=== PATIENT | female | born 1960 | race Caucasian/White ===

== ENCOUNTER 2022-02-26 09:10 | Outpatient (CLI) | payer OTHER ==
[2022-02-26 10:00] LABS: BASOPHILS # (AUTO) 0.1 10^3/uL (0.0-0.1); BASOPHILS % (AUTO) 0.8 %; EOSINOPHILS # (AUTO) 0.2 10^3/uL (0.0-0.7); EOSINOPHILS % (AUTO) 3.3 %; HCT - HEMATOCRIT 42.7 % (37.0-47.0); HGB - HEMOGLOBIN 13.8 g/dL (12.0-16.0); LYMPHOCYTES % (AUTO) 30.5 %; MEAN CORPUSCULAR HEMOGLOBIN 29.2 pg (27.0-31.0); MEAN CORPUSCULAR HGB CONC 32.3 g/dL (32.0-36.0); MEAN CORPUSCULAR VOLUME 90.3 fL (81.0-99.0); MEAN PLATELET VOLUME 9.7 fL (7.9-10.8); MONOCYTES # (AUTO) 0.4 10^3/uL (0.0-1.0); MONOCYTES % (AUTO) 5.5 %; NEUTROPHILS # (AUTO) 3.8 10^3/uL (1.5-6.6); NEUTROPHILS % (AUTO) 59.6 %; PLT - PLATELET COUNT 243 10^3/uL (130-450); RED BLOOD COUNT 4.73 10^6/uL (4.20-5.40); RED CELL DISTRIBUTION WIDTH 13.5 % (12.0-15.0); WHITE BLOOD COUNT 6.4 x10^3/uL (4.8-10.8)
[2022-02-26 10:21] LABS: THYROID STIMULATING HORMONE 1.38 uIU/mL (0.34-5.60)
[2022-02-26 12:11] LABS: ALBUMIN/GLOBULIN RATIO 1.1 (1.0-2.2); ALKALINE PHOSPHATASE 58 IU/L (42-121); ALT ALANINE AMINOTRANSFERASE 17 IU/L (10-60); AST ASPARTATE AMINOTRANSFERASE 16 IU/L (10-42); BILIRUBIN,TOTAL 1.2 mg/dL (0.2-1.0); BUN - BLOOD UREA NITROGEN 18 mg/dL (6-20); CALCIUM 9.4 mg/dL (8.5-10.3); CARBON DIOXIDE - CO2 28 mmol/L (21-32); CHLORIDE 102 mmol/L (101-111); CHOL/HDL RATIO 2.6 (<4.4); CHOLESTEROL 199 mg/dL; CREATININE 0.9 mg/dL (0.4-1.0); GFR - MDRD 64 (>89); GLUCOSE 132 mg/dL (70-100); HDL CHOLESTEROL 78 mg/dL; LDL CHOLESTEROL,CALCULATED 106 mg/dL; LDL/HDL RATIO 1.4 (<4.4); POTASSIUM 4.3 mmol/L (3.5-5.0); SODIUM 140 mmol/L (135-145); TOTAL PROTEIN 7.6 g/dL (6.7-8.2); TRIGLYCERIDES 76 mg/dL; URIC ACID 5.2 mg/dL (2.6-7.2); VLDL CHOLESTEROL 15 mg/dL
[2022-02-26 12:46] LABS: ESTIMATED AVERAGE GLUCOSE 128 mg/dL (70-100); HEMOGLOBIN A1c% 6.1 % (4.27-6.07)
[2022-02-27 13:46] LABS: HEPATITIS C ANTIBODY NON-REACTIVE (NON-REACTIVE)
== END 2022-02-26 09:11 | disposition home or self-care (01) ==
LOC: LAB 09:10
PROVIDERS: ATTEND Internal Medicine
DX: I10 Essential (primary) hypertension (principal); E66.9 Obesity, unspecified; M19.90 Unspecified osteoarthritis, unspecified site; R73.03 Prediabetes; E04.1 Nontoxic single thyroid nodule; Z13.6 Encounter for screening for cardiovascular disorders; Z79.899 Other long term (current) drug therapy
CPT/HCPCS: 36415; 80053; 80061; 82607; 83036; 83721; 84443; 84550; 85025; 86803

== ENCOUNTER 2022-02-28 14:26 | Outpatient (CLI) | payer OTHER ==
--- NOTE | 2022-03-07 14:08 | Mammography Report ---
BILATERAL DIGITAL SCREENING MAMMOGRAM 3D/2D: 02/28/2022 CLINICAL: Routine screening. No prior exams were available for comparison at this time. There are scattered fibroglandular elemen ts in both breasts. 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 No other significant masses, calcifications, or other findings are seen in either breast. IMPRESSION: INCOMPLETE: NEEDS ADDITIONAL IMAGING EVALUATION The 0.5 cm oval focal asymmetry in the left breast is indeterminate. Additional views with possible ultrasound are recommended. Recommend comparison to prior mammogram if it become available. This exam was interpreted at Station ID: [id number]. NOTE: For mammograms, a report in lay terms will be sent to the patient. Approximately 15% of breast malignancies will not be visualized mammographically. In the management of a palpable breast mass, a negative mammogram must not discourage biopsy of a clinically suspicious lesion. Electronically Signed By: Prasanna Jones M.D. slc/:03/06/2022 14:21:29 ACR BI-RADS Category 0: Incomplete 3340F PARENCHYMAL PATTERN: (A) - The breast(s) demonstrate(s) scattered fibroglandular densities. BI-RADS CATEGORY: (0) - 0 Mammo and [place] [id number] Immediate follow-up LATERALITY: (B)
== END 2022-02-28 14:27 | disposition home or self-care (01) ==
LOC: DI.N 14:26
DX: Z12.31 Encounter for screening mammogram for malignant neoplasm of breast (principal); R92.8 Other abnormal and inconclusive findings on diagnostic imaging of breast

== ENCOUNTER 2022-06-15 12:48 | Outpatient (CLI) | payer OTHER | END 2022-06-15 12:49 | disposition home or self-care (01) | LOC: LAB 12:48 | PROVIDERS: ATTEND Internal Medicine | DX: E03.9 Hypothyroidism, unspecified (principal) | CPT/HCPCS: 36415; 84443 ==

== ENCOUNTER 2023-06-06 08:53 | Outpatient (CLI) | payer OTHER ==
[2023-06-06 09:18] LABS: BASOPHILS # (AUTO) 0.1 10^3/uL (0.0-0.1); BASOPHILS % (AUTO) 0.9 %; EOSINOPHILS # (AUTO) 0.2 10^3/uL (0.0-0.7); EOSINOPHILS % (AUTO) 3.2 %; HCT - HEMATOCRIT 41.8 % (37.0-47.0); HGB - HEMOGLOBIN 13.6 g/dL (12.0-16.0); LYMPHOCYTES # (AUTO) 1.5 10^3/uL (1.5-3.5); LYMPHOCYTES % (AUTO) 25.4 %; MEAN CORPUSCULAR HEMOGLOBIN 30.4 pg (27.0-31.0); MEAN CORPUSCULAR HGB CONC 32.5 g/dL (32.0-36.0); MEAN CORPUSCULAR VOLUME 93.5 fL (81.0-99.0); MEAN PLATELET VOLUME 9.5 fL (7.9-10.8); MONOCYTES # (AUTO) 0.3 10^3/uL (0.0-1.0); MONOCYTES % (AUTO) 5.4 %; NEUTROPHILS # (AUTO) 3.7 10^3/uL (1.5-6.6); NEUTROPHILS % (AUTO) 64.9 %; PLT - PLATELET COUNT 201 10^3/uL (130-450); RED BLOOD COUNT 4.47 10^6/uL (4.20-5.40); WHITE BLOOD COUNT 5.7 x10^3/uL (4.8-10.8)
[2023-06-06 09:38] LABS: ALBUMIN 3.9 g/dL (3.2-5.5); ALBUMIN/GLOBULIN RATIO 1.2 (1.0-2.2); ALKALINE PHOSPHATASE 67 IU/L (42-121); ALT ALANINE AMINOTRANSFERASE 16 IU/L (10-60); AST ASPARTATE AMINOTRANSFERASE 14 IU/L (10-42); BILIRUBIN,TOTAL 1.2 mg/dL (0.2-1.0); BUN - BLOOD UREA NITROGEN 18 mg/dL (6-20); CARBON DIOXIDE - CO2 28 mmol/L (21-32); CHLORIDE 100 mmol/L (101-111); CHOL/HDL RATIO 2.8 (<4.4); CHOLESTEROL 214 mg/dL; CREATININE 0.9 mg/dL (0.4-1.0); GFR - MDRD 64 (>89); GLUCOSE 130 mg/dL (70-100); HDL CHOLESTEROL 77 mg/dL; LDL CHOLESTEROL,CALCULATED 121 mg/dL; LDL/HDL RATIO 1.6 (<4.4); POTASSIUM 4.4 mmol/L (3.5-5.0); SODIUM 136 mmol/L (135-145); TOTAL PROTEIN 7.2 g/dL (6.7-8.2); TRIGLYCERIDES 79 mg/dL; VLDL CHOLESTEROL 16 mg/dL
== END 2023-06-06 08:54 | disposition home or self-care (01) ==
LOC: LAB 08:53
PROVIDERS: ATTEND Internal Medicine
DX: Z00.00 Encounter for general adult medical examination without abnormal findings (principal); I10 Essential (primary) hypertension; R73.03 Prediabetes; Z79.899 Other long term (current) drug therapy; F32.A Depression, unspecified
CPT/HCPCS: 36415; 80053; 80061; 83721; 84443; 85025

== ENCOUNTER 2023-06-27 08:00 | Outpatient (CLI) | payer OTHER ==
--- NOTE | 2023-06-27 17:59 | XRAY Report ---
PROCEDURE: Hip 2 View LT INDICATIONS: LEFT HIP PAIN TECHNIQUE: 3 views of the hip were acquired. COMPARISON: None. FINDINGS: Bones: Asymmetric severe left hip joint osteoarthritic changes are seen with near complete loss of s uperior joint space narrowing, extensive subchondral sclerosis and prominent in lateral marginal oste ophyte formation. No acute fracture or dislocation. No definite radiographic evidence of avascular ne crosis of femoral head. Soft tissues: No suspicious soft tissue calcifications or masses. IMPRESSION: Asymmetric severe left hip joint osteoarthritis. No acute hip fracture or dislocation. No radiographi c evidence of avascular necrosis. Reviewed by: Abisai Isaac MD on 06/27/2023 5:57 PM PDT Approved by: Abisai Isaac MD on 06/27/2023 5:57 PM PDT Station ID: [id number]
== END 2023-06-27 23:59 | disposition home or self-care (01) ==
LOC: DI.WOS 08:00
PROVIDERS: ATTEND Physician Assistant Surgical
DX: M16.12 Unilateral primary osteoarthritis, left hip (principal)

== ENCOUNTER 2023-07-17 09:28 | Outpatient (CLI) | payer OTHER ==
--- NOTE | 2023-07-17 16:58 | MRI Report ---
PROCEDURE: HIP WO - LT INDICATIONS: LEFT HIP PAIN TECHNIQUE: Noncontrast coronal T1 spin echo and STIR through the bony pelvis. Coronal and axial T2 fast spin ec ho with fat saturation, sagittal T1 spin echo, and oblique axial T2 fast spin echo with fat saturatio n through the hip. COMPARISON: Plain films dated 06/27/2023. FINDINGS: Image quality: Excellent. Bones and joints: Severe subchondral cyst formation within the left acetabulum and left femoral head. Bone marrow of the pelvic ring and proximal femurs demonstrates otherwise normal signal throughout. No intraosseous lesions or fractures. No avascular necrosis of the femoral heads. Left hip joint ef fusion with multiple intra-articular loose bodies, largest of which measures 25 mm diameter. The vis ualized lower lumbar spine appears normally aligned. Tendons: The gluteus medius and minimus tendons appear intact, without associated muscle atrophy. T here is mild T2 signal elevation at the femoral insertion site of the left gluteus medius and minimus tendons. The iliopsoas tendon appears intact, without adjacent bursal fluid collections. The origin of the hamstring tendon is intact at the ischial tuberosity. Labrum and cartilage: Severe diffuse degenerative left hip labral tearing. Severe articular cartilage loss at the left hip. The alpha angle of the femur is within normal limits at less than 55 degrees. Soft tissues: Visualized muscles demonstrate normal bulk and internal signal. The proximal sciatic neurovascular bundle appears normal adjacent to the hamstring tendons. No free pelvic fluid. Bladde r wall thickness is normal. Genitourinary structures and bowel loops appear normal where visualized. IMPRESSION: 1. Left hip osteoarthritis with associated with degenerative left hip labral tearing and severe degre e cartilage loss. 2. Insertional tendinitis of the left gluteus medius and minimus tendons. 3. Left hip joint effusion with intra-articular loose bodies. Reviewed by: Neo Ness MD on 07/17/2023 4:57 PM PDT Approved by: Neo Ness MD on 07/17/2023 4:57 PM PDT Station ID: [id number]
== END 2023-07-17 09:29 | disposition home or self-care (01) ==
LOC: DI 09:28
PROVIDERS: ATTEND Internal Medicine
DX: M16.12 Unilateral primary osteoarthritis, left hip (principal); S73.102A Unspecified sprain of left hip, initial encounter; M76.02 Gluteal tendinitis, left hip; M25.452 Effusion, left hip; M24.052 Loose body in left hip